=== PATIENT | male | born 1995 | race Caucasian/White ===

== ENCOUNTER 2022-03-11 10:31 | Outpatient (CLI) | payer OTHER, SELFPAY ==
[2022-03-11 12:30] LABS: Viscosity Semen Droplets; Volume Semen 2.5 mL (2-5)
[2022-03-11 13:15] LABS: White Blood Count Semen 0-4 /hpf
[2022-03-11 13:16] LABS: Pathology Referral Yes; Sperm Immotility 20 % (50-60); Sperm Non-Progressive Motility 10 % (5-10); Sperm Progressive Motility 70 % (31-34)
== END 2022-03-11 10:32 | disposition home or self-care (01) ==
LOC: LAB 10:35
PROVIDERS: Visit Provider Obstetrics & Gynecology
DX: N46.9 Male infertility, unspecified (principal)
CPT/HCPCS: 80503; 89320

== ENCOUNTER 2024-08-28 10:35 | Emergency (ER) | payer OTHER, SELFPAY ==
[2024-08-28 10:44] VITALS: BP 175/110; PULSE 72; RESP 16; TEMP 36.7; O2SAT 99; BMI 44.3
--- NOTE | 2024-08-28 10:57 | XRR_ITS ---
PROCEDURE INFORMATION: Exam: XR Right Knee Exam date and time: 08/28/2024 11:03 AM Age: 29 years old Clinical indication: Injury or trauma; Other: Twisted knee; Sprain or strain; Patella or knee; Injury details: PT presents with complaint of right knee pain. PT states he was playing disc golf and turned wrong on his knee and heard a pop. PT reports HX of cartilage issues with same knee. PT ambulated into triage, PT limping. No obvious deformities noted to knee. PT reports sharp pain from knee to hip. TECHNIQUE: Imaging protocol: Radiologic exam of the right knee. Views: 3 views. COMPARISON: No relevant prior studies available. FINDINGS: Bones/joints: There is no fracture or joint dislocation. Small suprapatellar knee effusion. Soft tissues: Normal. XR/XR knee RT 3V* [id number] IMPRESSION: Small suprapatellar knee effusion. No fracture.
--- NOTE | 2024-08-28 10:58 | W.ED.EXTPRO ---
HPI - Extremity Problem General: Chief complaint: Extremity Injury, Lower Stated complaint: R knee pain Time Seen by Provider: 08/28/24 10:51 History of Present Illness: 29-year-old male presents with right knee pain. He reports he was playing disc golf yesterday when he took a misstep. He is got some pain throughout the whole aspect of the right knee. He states that he heard a pop he is able to bear weight and ambulate Associated symptoms: Deny chest pain or fever(s) Related Data Home Medications ?Medication ?Instructions ?Recorded ?Confirmed No Known Home Medications 08/28/24 08/28/24 Allergies Allergy/AdvReac Type Severity Reaction Status Date / Time Sulfa (Sulfonamide Allergy Intermediate ALGY-Hives Verified 08/28/24 10:48 Antibiotics) Penicillins Allergy Mild ADR-Vomitin Verified 08/28/24 10:48 g Review of Systems Const: Denies: fever(s) or chills Card: Denies: chest pain or palpitations Resp: Denies: dyspnea or productive cough Musc: Reports: joint pain; Denies: joint swelling [facility] PFSH: Medical History Dental abscess Physical Exam Const: COMMON NORMALS: no acute distress, patient oriented x3 and alert NUTRITIONAL APPEARANCE: obese HENMT: COMMON NORMALS: normocephalic HEAD & SCALP: normocephalic Resp: COMMON NORMALS: normal respiratory effort and clear to auscultation bilaterally AUSCULTATION: clear to auscultation bilaterally Cardio: COMMON NORMALS: regular rate and regular rhythm RATE: regular rate RHYTHM: regular rhythm Extremity: NARRATIVE EXTREMITY EXAM: Tenderness diffusely to right knee, no swelling noted, no ligament laxity noted in the anterior posterior or medial lateral ligaments. No joint effusion noted. Mild tenderness joint line. Neuro: COMMON NORMALS: patient oriented x3 and moves all extremities SENSORIUM/ORIENTATION: Yes alert Psych: COMMON NORMALS: mental status grossly normal Skin: COMMON NORMALS: no rashes or lesions noted and turgor normal GENERAL SKIN EXAM: no rashes or lesions noted and turgor normal Course Vital Signs: Vital signs: Vital Signs Temperature 98.1 F 08/28/24 10:44 Pulse Rate 72 08/28/24 12:03 Respiratory Rate 16 08/28/24 10:44 Blood Pressure 148/82 08/28/24 12:03 Pulse Oximetry 99 08/28/24 12:03 Oxygen Delivery Me thod Room Air 08/28/24 11:03 MDM - Extremity (Nontraumatic) Medical Decision Making Patient's x-ray was ordered reviewed and shows mild suprapatellar knee effusion. Patient has some mild joint line tenderness. Recommended Bi wrap or knee sleeve with support. Patient had no ligament laxity noted on exam. Did recommend he follow-up with primary care provider or orthopedic for further outpatient evaluation as needed. He is stable and discharged home Lab Data Radiology Impressions Knee X-Ray 08/28/24 10:57 IMPRESSION: Small suprapatellar knee effusion. No fracture. All radiology interpretation(s) finalized by discharge Discharge Plan Discharge Patient Disposition: Home Clinical Impression: Acute internal derangement of knee Condition: Stable Prescriptions: No Action No Known Home Medications Discharge Orders: Discharge ED (Routine); Ordered 08/28/24 Ordered By: Rivera Freeman Discharge Diet: Usual diet Discharge Activity: Increase activity as tolerated Patient Instructions: Knee Sprain (DC), Knee Pain (ED), Opioid Safety, Pain Management Activity Restrictions/Additional Instructions: Recommend Bi wrap or knee sleeve with support as needed. If symptoms continue for the next week or continue to worsen please follow-up with orthopedic tech for further evaluation. 4% topical lidocaine with menthol cream or gel and Voltaren/diclofenac cream or gel use these as directed on package. Tylenol or ibuprofen as needed for discomfort. Print Language: Serbian Coding Level of Care Code ED Apprentice Cosmetologist for [employer]
[2024-08-28] MEDS: ketorolac 30 mg/mL INJ IM (11:01)
[2024-08-28 11:03] VITALS: BP 156/84; PULSE 78; O2SAT 98
[2024-08-28 12:03] VITALS: BP 148/82; PULSE 72; O2SAT 99
== END 2024-08-28 12:04 | disposition home or self-care (01) ==
PROVIDERS: Emergency Provider Student in an Organized Health Care Education/Training Program
DX: M23.8X1 Other internal derangements of right knee (principal)
CPT/HCPCS: 73562; 96372; 99284; J1885

== ENCOUNTER → 2024-11-21 08:33 | Outpatient (BNVA) | payer OTHER, SELFPAY | DX: Z76.89 Persons encountering health services in other specified circumstances (principal) | CPT/HCPCS: 80053; 80061; 81000; 83036; 85025 ==

== ENCOUNTER 2024-11-30 12:38 | Outpatient (CLI) | payer OTHER, SELFPAY ==
--- NOTE | 2024-11-30 12:45 | US_ITS ---
WS: [id number] TESTICULAR ULTRASOUND HISTORY: left testicular pain COMPARISON: None available. TECHNIQUE: Real-time and color Doppler imaging utilized to perform a testicular ultrasound. Right testicle: 4.5 cm x 2.9 cm x 2.7 cm. Normal size and echogenicity. No mass or torsion. Normal color Doppler is present throughout. Systolic and diastolic velocities are both present. No significant hydrocele. Right epididymis: Normal epididymis with no increased vascularity. Left testicle: 4.4 cm x 2.9 cm x 2.1 cm. Normal size and echogenicity. No mass or torsion. Normal color Doppler is present throughout. Systolic and diastolic velocities are both present. No significant hydrocele. Left epididymis: Normal epididymis with no increased vascularity. US/US scrotum [id number] IMPRESSION: NORMAL TESTICULAR ULTRASOUND.
--- NOTE | 2024-11-30 13:45 | US_ITS ---
WS: [id number] US pelvic limited [id number] HISTORY: possible left inguinal hernia COMPARISON: None available. Ultrasound performed along the LEFT inguinal canal. No soft tissue mass identified. There is no adenopathy. No peristalsing loop of bowel. No GI tract or hernia identified. US/US pelvic limited [id number] IMPRESSION: No abnormality at the LEFT inguinal region. No incarcerated hernia.
== END 2024-11-30 12:39 | disposition home or self-care (01) ==
DX: N50.812 Left testicular pain (principal)
CPT/HCPCS: 76857; 76870